=== PATIENT | male | born 1960 | race Caucasian/White ===

== ENCOUNTER 2017-07-03 12:03 | Day surgery (SDC) | payer OTHER ==
[~2017-07-03] VITALS: Ht 165.1 cm; Wt 97.0 kg
[2017-07-03] MEDS ORDERED: ATENOLOL (12:35)
[2017-07-03] MEDS ORDERED: ASPIRIN (12:35)
[2017-07-03] MEDS ORDERED: ATORVASTATIN (12:35)
[2017-07-03] MEDS ORDERED: LISINOPRIL HCTZ (12:35)
[2017-07-03 12:36] VITALS: Ht 165.1 cm; Wt 97.0 kg
[2017-07-03] MEDS ORDERED: LIDOCAINE 2% (SDV) 5 ML INJ ONE (12:58)
[2017-07-03] MEDS ORDERED: PROPOFOL 60 ML ONE (12:58)
[2017-07-03 13:07] VITALS: BP 151/74; PULSE 60; RESP 18
--- NOTE | 2017-07-03 13:33 | OPPN ---
Date/Time of Note Date/Time of Note DATE: 07/03/17 TIME: 13:30 Operative Report Preoperative Diagnosis occult bleeding Postoperative Diagnosis fundic glands,nodular mucosa in body and fundal area otherwise normal Operation/Procedure Performed EGD BIOPSY Provider: HO KELLEY MD kennel assistant: BETSY JENKINS Anesthesia Type: MAC Transfusion Required: no Specimen: none Grafts/Implants: none Complications: no HO KELLEY MD Jul 03, 2017 13:33
--- NOTE | 2017-07-03 13:36 | OPPN ---
Date/Time of Note Date/Time of Note DATE: 07/03/17 TIME: 13:34 Operative Report Preoperative Diagnosis OCCULT BLEEDING Postoperative Diagnosis DIVERTICULOSIS IN SIGMOID COLON OTHERWISE NORMAL Operation/Procedure Performed COLONOSCOPY DIAGNOSTIC Provider: HO KELLEY MD editorial assistant: BETSY JENKINS Anesthesia Type: MAC Estimated blood loss: none Transfusion Required: no Specimen: none Grafts/Implants: none Complications: no HO KELLEY MD Jul 03, 2017 13:36
[2017-07-03 13:55] VITALS: BP 136/77; RESP 21
--- NOTE | 2017-07-03 18:26 | GILP ---
DATE OF PROCEDURE: PREOPERATIVE DIAGNOSIS: Occult bleeding. PROCEDURE PERFORMED: Colonoscopy of the cecum. Anesthesia by Dr. Duran Ferrer because of coronary artery disease and sleep apnea. POSTOP DIAGNOSIS: Few scattered diverticula in the sigmoid colon. Otherwise, normal colonoscopy. DESCRIPTION OF PROCEDURE: The patient was put in left lateral decubitus after EGD. Further sedation monitoring continued by the anesthesiologist. Rectal exam was done and this was negative. Advanced Olympus video colonoscope all the way to the cecum. The ileocecal valve and appendiceal opening identified. Cecum, ascending colon, transverse colon, descending colon were normal. Few scattered diverticula noted in the sigmoid colon, but no diverticulitis or any bleeding. The rectum, including retroflexion, was normal. Upon removal of scope, patient had no complication. PLAN: Will be to follow the patient as outpatient. Repeat colonoscopy in 10 years. Dictated By: Marah Hess MD /[email or web address] /Document#: [id number]
--- NOTE | 2017-07-03 18:26 | GILP ---
DATE OF PROCEDURE: PREOPERATIVE DIAGNOSES: Occult bleeding. History of sleep apnea and coronary artery bypass. This patient underwent EGD, first procedure, with anesthesia. Anesthesiologist named Dr. Duran Ferrer. POSTOP DIAGNOSIS: Fundic glands in the body and the fundal area of the stomach, otherwise normal upper endoscopy. DESCRIPTION OF PROCEDURE: The patient was put in left lateral decubitus. After obtaining informed consent, he was he was sedated, monitored on oximetry, EKG, and blood pressure. Very carefully, I advanced Olympus video upper endoscope into the esophagus, stomach and duodenum. The entire esophagus was normal. Stomach showed a few fundic glands in the fundus and body. These were due to PPI therapy, and there were photographs and biopsies were done randomly and also of the nodular area, but no evidence of any ulcer disease. Antrum normal. Duodenal bulb easily entered through the pyloric channel. Duodenum, up to the second part, normal. No ulcer noted. Upon removal of scope, patient had no complication. PLAN: Will be to await biopsy report. Follow up as outpatient. Probably, I would recommend him to stop the PPI, as there is no ulcer disease on this patient. We will proceed with colonoscopy as planned. Dictated By: Marah Hess MD /[email or web address] /Document#: [id number]
== END 2017-07-03 17:05 | disposition home or self-care (01) ==
LOC: GIL 12:03
PROVIDERS: ATTEND Internal Medicine
DX: K92.1 Melena (principal); K57.90 Diverticulosis of intestine, part unspecified, without perforation or abscess without bleeding
CPT/HCPCS: 88305